=== PATIENT | male | born 1990 | race Two or more races ===

== ENCOUNTER 2024-07-10 18:48 | Emergency (ER) | payer BC, MEDICAID ==
[~2024-07-10] VITALS: Ht 193 cm; Wt 104.9 kg
[2024-07-10 19:35] LABS: Urine Bacteria None Seen /hpf (None Seen)
[2024-07-10 19:56] LABS: Urine Blood Negative /uL (Negative); Urine Clarity Clear (Clear); Urine Color Yellow (Yellow); Urine Mucus FEW (None Seen); Urine Protein, UAD Negative (Negative); Urine Specific Gravity 1.029 (1.001-1.035); Urine Squamous Epithelial Cell None Seen /hpf (<5); Urine Urobilinogen Normal (Negative); Urine WBC 1 /HPF (0-3); Urine pH 5.5 (5.0-9.0)
--- NOTE | 2024-07-10 20:01 | ED.PDOC ---
History of Present Illness HPI Comments 33 y/o M, with a history of mental delay, presents with welding technician for c/o nonradiating, lower abdominal pain s/p work-related injury, today. 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 He endorses on pain onset at around 0930, this morning, after lifting a heavy object with his back. Now, pain onset whenever he sits down or bends forward. He denies taking any pain medications prior to arrival in addition to having any difficulty with urination or defecation along with any further associated symptoms or modifiers. Chief Complaint: Abdominal Pain Time Seen by MD: 19:20 Primary Care Provider: none Reviewed Notes: Nurses Notes, Medications, Allergies Allergies: Coded Allergies: Cefaclor (Verified Allergy, Unknown, 07/10/24) Penicillins (Verified Allergy, Unknown, 07/10/24) Sulfamethoxazole w/Trimethoprim (Verified Allergy, Unknown, 07/10/24) Information Source: Patient Mode of Arrival: Ambulatory Severity: Moderate Timing: Hours Duration: Since onset Prehospital treatment: None Past Medical History Past Medical History (Other): mental delay Surgical History (Other): nasal surgery as a child Family History Family History: Unknown Social History Smoker: Non-Smoker Alcohol: Denies ETOH Use Drugs: Denies Drug Use Lives In: Home All Other Systems: Reviewed and Negative (Comprehensive systems review obtained and negative except for what is stated in the HPI.) Physical Exam General Appearance: No Apparent Distress HEENT: Other (Pupils and face symmetric. Moist mucous membranes.) Neck: Full Range of Motion, Normal Inspection Respiratory: Lungs Clear, No Accessory Muscle Use, No Respiratory Distress, Normal Breath Sounds Cardiovascular: No Edema, No JVD, Regular Rate/Rhythm Breast Exam: Deferred Gastrointestinal: Soft, Other (Infraumbilical abdominal wall tenderness to palpation. No rebound or guarding.) Genitalia: Deferred Pelvic: Deferred Rectal: Deferred Extremities: Normal inspection, Normal range of motion, Non-tender, No pedal edema Neurologic: Alert (Oriented x4), Normal Affect, Normal Mood, Other (Ambulatory) Cerebellar Function: NOT DONE Reflexes: NOT DONE Skin: Dry, Normal Color, Warm Lymphatic: NOT DONE Was a procedure done? Was a procedure done?: No Differential Dx Considerations may include: Abdominal wall muscle strain, hernia, among others X-Ray, Labs, Meds, VS Vital Signs Date Time Temp Pulse Resp B/P (MAP) Pulse Ox O2 Delivery O2 Flow Rate FiO2 07/10/24 21:00 98.3 94 20 107/81 (90) 94 98.3 07/10/24 18:59 98.1 104 17 100/74 (83) 99 98.1 Lab Test 07/10/24 19:23 Range/Units Urine Color Yellow Yellow Urine Clarity Clear Clear Urine pH 5.5 5.0-9.0 Urine Specific [place] 1.029 1.001-1.035 Urine Protein Negative Negative Urine Ketones Negative Negative Urine Blood Negative Negative /uL Urine Nitrite Negative Negative Urine Bilirubin Negative Negative Urine Urobilinogen Normal Negative mg/dL Urine Leukocyte Esterase Negative Negative /uL Urine RBC <1 0 - 3 /hpf Urine Microscopic WBC 1 0-3 /HPF Urine Squamous Epithelial Cells None seen <5 /hpf Urine Bacteria None seen None Seen /hpf Urine Mucus Few None Seen Urine Glucose Normal Normal mg/dL Current Medications Medications (Trade) Dose Ordered Sig/Anni Route Start Time Stop Time Status Last Admin Ketorolac Tromethamine (Toradol Injection) 60 mg ONCE ONCE IM 07/10/24 19:30 07/10/24 19:31 DC 07/10/24 21:18 Acetaminophen/ Hydrocodone Bitart ([place] 5/325MG Tab) 1 tab ONCE ONCE PO 07/10/24 19:30 07/10/24 19:31 DC 07/10/24 21:17 [place] [id number] Ph: [phone] DIAGNOSTIC IMAGING Diagnostic Imaging Report : [id number] Signed PATIENT: MATTHEW TALLEY ACCT: [id number] UNIT: [id number] : 1990 LOC: ER ROOM / BED: / AGE / SEX: 33 / M ADM STATUS: REG ER SERVICE 22 ORDERING PHYSICIAN: LAKSHMI COLLADO MD PROCEDURE(s): ABPL - CT AB PEL WO CON-NO ORAL OR IV REASON: lower abd pain s/p heavy lifting r/o hernia ORDER NUMBER(s): [id number], ACCESSION NUMBER(s): [id number] Exam: CT CT AB PEL WO CON-NO ORAL OR IV History: lower abd pain s/p heavy lifting r/o hernia Comparison Study: None Technique: Multidetector spiral CT of the abdomen was performed from lung bases to pubic symphysis. Imaging was performed without IV contrast. Axial, coronal and sagittal multiplanar reformats were obtained from the axial data set by the technologist. Radiation Dose : 1. Abdomen/Pelvis: CTDIvol 18.53 mGy, DLP 1100.28 mGy*cm. Findings: Evaluation of solid organs is limited due to lack of intravenous contrast use. Lung Bases: No acute or significant lung base finding. Normal heart size. No pleural or pericardial effusion. Liver: The liver is normal in size. No focal lesions. Gallbladder and Biliary Tree: Unremarkable Spleen: Unremarkable Pancreas: The pancreas is grossly normal in appearance. Adrenal Glands: Unremarkable Kidneys: Kidneys are grossly normal without calculi or hydronephrosis. Bladder: Grossly unremarkable for degree of distention. Bowel: The stomach is grossly normal in appearance. No bowel obstruction. Concentric wall thickening of the descending colon is suggestive of infectious / inflammatory colitis. The appendix is not visualized; however, no secondary findings of acute appendicitis identified. Ascites: Absent Lymphadenopathy: No mesenteric, retroperitoneal or periportal lymphadenopathy. Abdominal Wall and Mesentery: Unremarkable. No hernia identified Vasculature: The visualized abdominal aorta is normal in size and caliber. Evaluation of abdominal and pelvic vessels is limited due to lack of intravenous contrast. Pelvic Organs: Unremarkable Musculoskeletal: No aggressive focal bony lesions, acute fractures or dislocation. IMPRESSION: 1. Concentric wall thickening of the descending colon is suggestive of infectious / inflammatory colitis. Radiation optimization: All CT scans at this facility use at least one of these dose optimization techniques: automated exposure control mA and/or kV adjustment per patient size (includes targeted exams where dose is matched to clinical indication) or iterative reconstruction. ATED BY: ARLET CELIS MD DICTATED DATE/TIME: 07/10/242012 SIGNED BY: ARLET CELIS MD SIGNED DATE/TIME: 07/10/242012 CC: X-Ray, Labs, Meds, VS Comment 33-year-old male with history of developmental delay brought in by caregiver for evaluation of lower abdominal pain that occurred after lifting a heavy object Vitals remarkable for heart rate 104 Exam remarkable for infraumbilical abdominal wall tenderness to palpation. No hernia noted. No rebound or guarding. Rhythm strip independently interpreted by me: Sinus tach, rate 104, no ectopy. CT abdomen and pelvis IMPRESSION: 1. Concentric wall thickening of the descending colon is suggestive of infectious / inflammatory colitis. UA unremarkable Patient treated with the following in the ED: Toradol 60 mg IM, [place] 5/325 mg p.o. with improvement of pain On re-evaluation, I asked the patient if he had any recent symptoms such as fever, nausea, vomiting, diarrhea, constipation, bloody stool, which he denied. His history and exam were inconsistent with colitis. I advised the patient and his caregiver regarding the CT findings and inconsistency with the patient's presentation. They were advised to follow-up with the patient's primary physician within the next 2 days for re-evaluation with regard to the CT findings. Rx Tylenol, ibuprofen Time of 1ST Reevaluation: 19:50 Reevaluation 1ST: Unchanged Time of 2ND Reevaluation: 21:34 Reevaluation 2ND: Improved Patient Education/Counseling: Treatment, Need For Follow Up Family Education/Counseling: Treatment, Need For Follow Up Departure 1 Departure Time of Disposition: 21:34 Impression: Primary Impression: Abdominal wall strain Qualified Codes: S39.011A - Strain of muscle, fascia and tendon of abdomen, initial encounter Disposition: 01 HOME / SELF CARE / HOMELESS Condition: Stable Additional Instructions: Your urine test was unremarkable. Your CT report is provided below. Your symptoms are not consistent with colitis, so I have prescribed only pain medication to treat your abdominal wall muscle strain. Follow-up with your primary doctor in 1-2 days for re-evaluation with regard to the CT findings. Return to ER for persistent or worsening symptoms. [place] [id number] Ph: [phone] DIAGNOSTIC IMAGING Diagnostic Imaging Report : [id number] Signed PATIENT: MATTHEW TALLEY ACCT: [id number] UNIT: [id number] : 1990 LOC: ER ROOM / BED: / AGE / SEX: 33 / M ADM STATUS: REG ER SERVICE 22 ORDERING PHYSICIAN: LAKSHMI COLLADO MD PROCEDURE(s): ABPL - CT AB PEL WO CON-NO ORAL OR IV REASON: lower abd pain s/p heavy lifting r/o hernia ORDER NUMBER(s): [id number], ACCESSION NUMBER(s): [id number] Exam: CT CT AB PEL WO CON-NO ORAL OR IV History: lower abd pain s/p heavy lifting r/o hernia Comparison Study: None Technique: Multidetector spiral CT of the abdomen was performed from lung bases to pubic symphysis. Imaging was performed without IV contrast. Axial, coronal and sagittal multiplanar reformats were obtained from the axial data set by the technologist. Radiation Dose : 1. Abdomen/Pelvis: CTDIvol 18.53 mGy, DLP 1100.28 mGy*cm. Findings: Evaluation of solid organs is limited due to lack of intravenous contrast use. Lung Bases: No acute or significant lung base finding. Normal heart size. No pleural or pericardial effusion. Liver: The liver is normal in size. No focal lesions. Gallbladder and Biliary Tree: Unremarkable Spleen: Unremarkable Pancreas: The pancreas is grossly normal in appearance. Adrenal Glands: Unremarkable Kidneys: Kidneys are grossly normal without calculi or hydronephrosis. Bladder: Grossly unremarkable for degree of distention. Bowel: The stomach is grossly normal in appearance. No bowel obstruction. Concentric wall thickening of the descending colon is suggestive of infectious / inflammatory colitis. The appendix is not visualized; however, no secondary findings of acute appendicitis identified. Ascites: Absent Lymphadenopathy: No mesenteric, retroperitoneal or periportal lymphadenopathy. Abdominal Wall and Mesentery: Unremarkable. No hernia identified Vasculature: The visualized abdominal aorta is normal in size and caliber. Evaluation of abdominal and pelvic vessels is limited due to lack of intravenous contrast. Pelvic Organs: Unremarkable Musculoskeletal: No aggressive focal bony lesions, acute fractures or dislocation. IMPRESSION: 1. Concentric wall thickening of the descending colon is suggestive of infectious / inflammatory colitis. Radiation optimization: All CT scans at this facility use at least one of these dose optimization techniques: automated exposure control mA and/or kV adjustment per patient size (includes targeted exams where dose is matched to cl inical indication) or iterative reconstruction. e-Prescriptions Ibuprofen Micronized (Ibuprofen) 800 Mg Tab 1 TAB PO Q8HP PRN, #30 TAB prn pain, take with food Prov: LAKSHMI COLLADO MD 07/10/24 Acetaminophen (Tylenol Extra Strength) 500 Mg Tab 1000 MG PO Q6HP PRN, #30 TAB prn pain Prov: LAKSHMI COLLADO MD 07/10/24 Discharged With: Posting Specialist Critical Care Note Critical Care Time?: No Stability Stability form required: No Heart Score Heart Score: Heart Score Response (Comments) Value History N/A 0 EKG N/A 0 Age N/A 0 Risk Factors N/A 0 Troponin N/A 0 Total 0 I personally scribed for LAKSHMI COLLADO MD ([email or web address]) on 07/10/24 at 20:01. Electronically submitted by Elier Dexter ([email or web address]). I personally scribed for LAKSHMI COLLADO MD ([email or web address]) on 07/10/24 at 20:39. Electronically submitted by Elier Dexter ([email or web address]). LAKSHMI COLLADO MD July 10, 2024 20:01
--- NOTE | 2024-07-10 20:16 | DVH ---
Exam: CT CT AB PEL WO CON-NO ORAL OR IV History: lower abd pain s/p heavy lifting r/o hernia Comparison Study: None Technique: Multidetector spiral CT of the abdomen was performed from lung bases to pubic symphysis. Imaging was performed without IV contrast. Axial, coronal and sagittal multiplanar reformats were ob tained from the axial data set by the technologist. Radiation Dose : 1. Abdomen/Pelvis: CTDIvol 18.53 mGy, DLP 1100.28 mGy*cm. Findings: Evaluation of solid organs is limited due to lack of intravenous contrast use. Lung Bases: No acute or significant lung base finding. Normal heart size. No pleural or pericardial effusion. Liver: The liver is normal in size. No focal lesions. Gallbladder and Biliary Tree: Unremarkable Spleen: Unremarkable Pancreas: The pancreas is grossly normal in appearance. Adrenal Glands: Unremarkable Kidneys: Kidneys are grossly normal without calculi or hydronephrosis. Bladder: Grossly unremarkable for degree of distention. Bowel: The stomach is grossly normal in appearance. No bowel obstruction. Concentric wall thickening of the descending colon is suggestive of infectious / inflammatory colitis. The appendix is not visu alized; however, no secondary findings of acute appendicitis identified. Ascites: Absent Lymphadenopathy: No mesenteric, retroperitoneal or periportal lymphadenopathy. Abdominal Wall and Mesentery: Unremarkable. No hernia identified Vasculature: The visualized abdominal aorta is normal in size and caliber. Evaluation of abdominal a nd pelvic vessels is limited due to lack of intravenous contrast. Pelvic Organs: Unremarkable Musculoskeletal: No aggressive focal bony lesions, acute fractures or dislocation. IMPRESSION: 1. Concentric wall thickening of the descending colon is suggestive of infectious / inflammatory coli tis. Radiation optimization: All CT scans at this facility use at least one of these dose optimization danae hniques: automated exposure control mA and/or kV adjustment per patient size (includes targeted exam s where dose is matched to clinical indication) or iterative reconstruction.
[2024-07-10 21:00] VITALS: BP 107/81; PULSE 94; RESP 20; TEMP 98.3; O2SAT 95
[2024-07-10] MEDS: HYDROcodone-ACET 5/325MG TAB PO ONE (21:17)
[2024-07-10] MEDS: KETOROLAC TROMETH 60MG/2ML VIAL IM ONE (21:18)
[2024-07-10] MEDS ORDERED: ACET-1304 PO (21:38)
[2024-07-10] MEDS ORDERED: IBUP-1455 PO (21:38)
== END 2024-07-10 22:27 | disposition home or self-care (01) ==
LOC: ER 18:48
DX: S39.011A Strain of muscle, fascia and tendon of abdomen, initial encounter (principal); Z88.0 Allergy status to penicillin; Z88.1 Allergy status to other antibiotic agents; Z88.2 Allergy status to sulfonamides; X50.0XXA Overexertion from strenuous movement or load, initial encounter; Y93.89 Activity, other specified; Y92.89 Other specified places as the place of occurrence of the external cause; Y99.8 Other external cause status
CPT/HCPCS: 74176; 81001; 96372; 99285; J1885